=== PATIENT | female | born 1995 | race Caucasian/White ===

== ENCOUNTER 2023-12-14 19:11 | Observation (INO) | payer OTHER, SELFPAY ==
[2023-12-14 19:59] VITALS: PULSE 94; O2SAT 99
[2023-12-14 20:00] VITALS: BP 121/73; PULSE 92
[2023-12-14] MEDS: LACTATED RINGERS 1,000 ML 999 ML IV CONT (20:00)
[2023-12-14 20:01] VITALS: BP 121/73; PULSE 92; RESP 18; TEMP 36.9; O2SAT 99; BMI 27.6
--- NOTE | 2023-12-14 20:01 | OBADM ---
This patient, Shweta Dee, admitted to the OB room OB Post 113 for observation. Patient/family oriented to hospital policies and general routines including ID bracelet, bed and alarms, visiting hours, pain management, procedures, bathroom and other care routines, personal items, smoking policy, room service/diet, and visiting hours. Patient/Family are encouraged to report perceived risks to care and to ask questions if they do not understand what they are told or what they should do.
[2023-12-14 20:10] LABS: Basophils Percent Auto 0.3 % (0.2-1.2); Eosinophils Percent Auto 0.3 % (0-4.4); Hematocrit 36.8 % (37.0-47.0); Hemoglobin 12.2 g/dL (12.0-15.0); Immature Granulocyte Absolute 0.02 K/mm3 (0.00-0.031); Immature Granulocyte Percent A 0.5 % (0-0.5); Lymphocytes Absolute Auto 0.57 K/mm3 (0.9-3.2); Lymphocytes Percent Auto 14.6 % (18.3-44.2); Mean Corpuscular HGB Conc 33.2 g/dl (32-36); Mean Corpuscular Hemoglobin 29.8 pg (26-34); Mean Corpuscular Volume 89.8 fl (80-100); Mean Platelet Volume 10.1 fl (7.4-10.4); Monocytes Absolute Auto 0.2 K/mm3 (0.1-0.6); Monocytes Percent Auto 4.4 % (2.6-8.5); Neutrophils Absolute Auto 3.1 K/mm3 (1.3-6.7); Neutrophils Percent Auto 79.9 % (45.5-73.1); Platelet Count Result 178 k/mm3 (150-375); Red Cell Distribution Width 13.5 % (11.5-14.5); White Blood Count 3.9 K/mm3 (4.5-10.0)
[2023-12-14 20:16] LABS: Appearance Urine Clear (Clear); Bacteria Urine None Seen /hpf; Bilirubin Urine Negative (Negative); Blood Urine Negative (Negative); Color Urine Yellow (Yellow); Glucose Urine UA Negative (Negative); Ketones Urine Negative (Negative); Leukocyte Esterase Ur Trace LEU/UL (Negative); Nitrate Urine Negative (Negative); Non Pathogenic Casts 0-2; Protein Urine Negative (Negative); RBC Urine 0-2 /hpf (0-2); Specific Grav Ur 1.017 (1.001-1.035); Squamous Epithelial Cell Urine Occasional /hpf (Few); WBC Urine 0-5 /hpf (0-3)
[2023-12-14 20:20] LABS: Alanine Aminotransferase 20 U/L (6-35); Albumin Level 4.7 g/dL (3.5-5.1); Alkaline Phosphatase 44 U/L (38-126); Anion Gap 8 mmol/L (4-12); Aspartate Amino Transferase 23 U/L (14-36); Bilirubin,Total 0.5 mg/dL (0.2-1.3); Blood Urea Nitrogen 7 mg/dL (7-17); Calcium 9.3 mg/dL (8.4-10.2); Carbon Dioxide 19 mmol/L (22-30); Chloride 106 mmol/L (98-107); Estimated CRCL calculation 147 ml/min; Estimated Glomerular Filt Rate > 60; Glucose 92 mg/dL (65-110); Potassium 3.6 mmol/L (3.4-5.0); Sodium 133 mmol/L (137-145)
[2023-12-14 20:33] LABS: Add Urine Microscopic? YES
[2023-12-14] MEDS: LACTATED RINGERS 1,000 ML 125 ML IV CONT (21:05)
--- NOTE | 2023-12-17 06:40 | PM.OBTRLD ---
OB - Triage/Final Diagnosis Visit Information Date of evaluation: 12/16/23 Reason for evaluation: threatened labor Comments/Additional reasons for admission: I have assessed the risk for this patient, Shweta Dee, and determined that she would benefit from observation care. Evaluation Laboratory results: Laboratory Tests 12/14/23 19:32 WBC 3.9 L RBC 4.10 L Hgb 12.2 Hct 36.8 L MCV 89.8 MCH 29.8 MCHC 33.2 RDW 13.5 Plt Count 178 MPV 10.1 Immature Gran % (Auto) 0.5 Neut % (Auto) 79.9 H Lymph % (Auto) 14.6 L [place] % (Auto) 4.4 Eos % (Auto) 0.3 Baso % (Auto) 0.3 Lymph # (Auto) 0.57 L [place] # (Auto) 0.2 Eos # (Auto) 0.0 Baso # (Auto) 0.0 Abs Immat Gran (auto) 0.02 Absolute Neuts (auto) 3.1 Absolute Nucleated RBC 0.000 Nucleated RBC % 0.0 Sodium 133 L Potassium 3.6 Chloride 106 Carbon Dioxide 19 L Anion Gap 8 BUN 7 Creatinine 0.50 L Estim Creat Clear Calc 147 Estimated GFR > 60 Glucose 92 Calcium 9.3 Total Bilirubin 0.5 AST 23 ALT 20 Alkaline Phosphatase 44 Total Protein 8.0 Albumin 4.7 Urine Color Yellow Urine Appearance Clear Urine pH 6.0 Ur Specific [place] 1.017 Urine Protein Negative Urine Glucose (UA) Negative Urine Ketones Negative Ur Blood (Man) Negative Urine Nitrate Negative Urine Bilirubin Negative Urine Urobilinogen 1.0 Leukocyte Esterase Rfl Trace H Urine RBC 0-2 Urine WBC 0-5 Ur Squamous Epith Cells Occasional Urine Bacteria None seen Urine Casts 0-2
== END 2023-12-14 22:05 | disposition home or self-care (01) ==
PROVIDERS: Admitting Provider Obstetrics & Gynecology; Visit Provider Obstetrics & Gynecology
DX: O47.02 False labor before 37 completed weeks of gestation, second trimester (principal); Z3A.14 14 weeks gestation of pregnancy
CPT/HCPCS: 36415; 80053; 81001; 85025; 96374; G0378; G0379; J0696; J7120

== ENCOUNTER 2024-04-29 13:39 | Outpatient (CLI) | payer OTHER, SELFPAY ==
[2024-04-29] VITALS (7 sets, daily range): BP systolic 91–120; BP diastolic 57–80; PULSE 86–96
[2024-04-29 14:36] LABS: Basophils Percent Auto 0.1 % (0.2-1.2); Eosinophils Absolute Auto 0.1 K/mm3 (0-0.3); Eosinophils Percent Auto 1.1 % (0-4.4); Hematocrit 35.3 % (37.0-47.0); Hemoglobin 11.5 g/dL (12.0-15.0); Immature Granulocyte Absolute 0.07 K/mm3 (0.00-0.031); Immature Granulocyte Percent A 0.8 % (0-0.5); Lymphocytes Absolute Auto 1.35 K/mm3 (0.9-3.2); Lymphocytes Percent Auto 14.6 % (18.3-44.2); Mean Corpuscular HGB Conc 32.6 g/dl (32-36); Mean Corpuscular Hemoglobin 30.3 pg (26-34); Mean Corpuscular Volume 93.1 fl (80-100); Mean Platelet Volume 10.6 fl (7.4-10.4); Monocytes Absolute Auto 0.5 K/mm3 (0.1-0.6); Monocytes Percent Auto 5.1 % (2.6-8.5); Neutrophils Absolute Auto 7.3 K/mm3 (1.3-6.7); Neutrophils Percent Auto 78.3 % (45.5-73.1); Platelet Count Result 199 k/mm3 (150-375); Red Blood Count 3.79 M/mm3 (4.2-5.4); Red Cell Distribution Width 13.8 % (11.5-14.5); White Blood Count 9.3 K/mm3 (4.5-10.0)
[2024-04-29 14:39] LABS: Add Urine Microscopic? YES; Appearance Urine Clear (Clear); Bacteria Urine Rare /hpf; Bilirubin Urine Negative (Negative); Blood Urine Negative (Negative); Color Urine Yellow (Yellow); Glucose Urine UA Negative (Negative); Ketones Urine 1+ mg/dL (Negative); Leukocyte Esterase Ur 3+ LEU/UL (Negative); Nitrate Urine Negative (Negative); Non Pathogenic Casts 0-2; Protein Urine Negative (Negative); RBC Urine 0-2 /hpf (0-2); Specific Grav Ur 1.017 (1.001-1.035); Squamous Epithelial Cell Urine Few /hpf (Few); Urobilinogen Urine 0.2 mg/dL (<2.0); pH Urine 5.5 (5.0-9.0)
[2024-04-29 14:43] LABS: Alanine Aminotransferase 15 U/L (6-35); Albumin Level 3.9 g/dL (3.5-5.1); Alkaline Phosphatase 103 U/L (38-126); Anion Gap 8 mmol/L (4-12); Aspartate Amino Transferase 24 U/L (14-36); Bilirubin,Total 0.4 mg/dL (0.2-1.3); Blood Urea Nitrogen 8 mg/dL (7-17); Calcium 8.9 mg/dL (8.4-10.2); Carbon Dioxide 21 mmol/L (22-30); Chloride 104 mmol/L (98-107); Estimated Glomerular Filt Rate > 60; Glucose 78 mg/dL (65-110); Potassium 3.8 mmol/L (3.4-5.0); Sodium 133 mmol/L (137-145); Uric Acid 4.3 mg/dL (2.5-7.5)
[2024-04-29 15:00] LABS: Creatinine Urine 86.2 mg/dL; Total Protein Urine Random 7 mg/dL; Ur Ttl Prot Creatinine Ratio 0.08 mg/mg (0-0.20)
== END 2024-04-29 15:45 | disposition home or self-care (01) ==
LOC: ANHOBOP 13:45 → ANHOBPP 13:46
PROVIDERS: Visit Provider Obstetrics & Gynecology
DX: O13.9 Gestational [pregnancy-induced] hypertension without significant proteinuria, unspecified trimester (principal); Z3A.00 Weeks of gestation of pregnancy not specified
CPT/HCPCS: 36415; 59025; 80053; 81001; 82570; 84156; 84550; 85025; 87086; 99199

== ENCOUNTER 2024-05-06 08:43 | Outpatient (CLI) | payer OTHER, SELFPAY ==
[2024-05-06 09:10] VITALS: BP 118/82; PULSE 109
[2024-05-06 09:15] VITALS: BP 125/82; PULSE 83
[2024-05-06 09:30] VITALS: BP 125/79; PULSE 96
[2024-05-06 09:32] VITALS: BP 125/79; PULSE 96
[2024-05-06 09:33] LABS: Basophils Percent Auto 0.2 % (0.2-1.2); Eosinophils Absolute Auto 0.1 K/mm3 (0-0.3); Eosinophils Percent Auto 1.1 % (0-4.4); Hematocrit 35.6 % (37.0-47.0); Hemoglobin 11.4 g/dL (12.0-15.0); Immature Granulocyte Absolute 0.05 K/mm3 (0.00-0.031); Immature Granulocyte Percent A 0.6 % (0-0.5); Lymphocytes Absolute Auto 1.05 K/mm3 (0.9-3.2); Mean Corpuscular Hemoglobin 29.8 pg (26-34); Mean Corpuscular Volume 93.2 fl (80-100); Monocytes Absolute Auto 0.5 K/mm3 (0.1-0.6); Monocytes Percent Auto 5.7 % (2.6-8.5); Neutrophils Absolute Auto 6.4 K/mm3 (1.3-6.7); Neutrophils Percent Auto 79.4 % (45.5-73.1); Platelet Count Result 199 k/mm3 (150-375); Red Blood Count 3.82 M/mm3 (4.2-5.4); White Blood Count 8.1 K/mm3 (4.5-10.0)
[2024-05-06 09:38] LABS: Add Urine Microscopic? YES; Appearance Urine Clear (Clear); Bacteria Urine 1+ /hpf; Bilirubin Urine Negative (Negative); Blood Urine Negative (Negative); Color Urine Yellow (Yellow); Glucose Urine UA Negative (Negative); Ketones Urine Negative (Negative); Leukocyte Esterase Ur 3+ LEU/UL (Negative); Nitrate Urine Negative (Negative); Non Pathogenic Casts 0-2; Protein Urine Negative (Negative); RBC Urine 0-2 /hpf (0-2); Specific Grav Ur 1.009 (1.001-1.035); Squamous Epithelial Cell Urine Moderate /hpf (Few); Urobilinogen Urine 0.2 mg/dL (<2.0)
[2024-05-06 09:42] LABS: Alanine Aminotransferase 15 U/L (6-35); Albumin Level 3.7 g/dL (3.5-5.1); Alkaline Phosphatase 108 U/L (38-126); Anion Gap 8 mmol/L (4-12); Aspartate Amino Transferase 22 U/L (14-36); Bilirubin,Total 0.2 mg/dL (0.2-1.3); Blood Urea Nitrogen 6 mg/dL (7-17); Calcium 8.6 mg/dL (8.4-10.2); Carbon Dioxide 20 mmol/L (22-30); Chloride 107 mmol/L (98-107); Estimated Glomerular Filt Rate > 60; Glucose 94 mg/dL (65-110); Potassium 4.2 mmol/L (3.4-5.0); Sodium 135 mmol/L (137-145); Uric Acid 4.1 mg/dL (2.5-7.5)
[2024-05-06 09:45] VITALS: BP 127/81; PULSE 103
[2024-05-06 10:00] VITALS: BP 125/82; PULSE 100
[2024-05-06 10:36] LABS: Creatinine Urine 38.7 mg/dL; Total Protein Urine Random 12 mg/dL; Ur Ttl Prot Creatinine Ratio 0.31 mg/mg (0-0.20)
--- NOTE | 2024-05-06 10:38 | PC.NURSE ---
Paged Dr. Elyssa Major to notify of lab results
--- NOTE | 2024-05-06 10:43 | PC.NURSE ---
Received call back from Dr. Elyssa Major. Informed of tracing, symptoms, vital signs, lab results, and negative ROM plus. MD verbalized understanding, states patient may be discharged on rest precautions. RN repeated orders back to confirm.
--- NOTE | 2024-05-06 10:54 | PC.NURSE ---
Discharge instructions provided to patient. Pt verbalized understanding. No further questions or concerns at this time.
== END 2024-05-06 10:55 | disposition home or self-care (01) ==
LOC: ANHOBOP 08:45 → ANHOBPP 08:45
PROVIDERS: Visit Provider Obstetrics & Gynecology
DX: O13.9 Gestational [pregnancy-induced] hypertension without significant proteinuria, unspecified trimester (principal); O41.8X90 Other specified disorders of amniotic fluid and membranes, unspecified trimester, not applicable or unspecified
CPT/HCPCS: 36415; 80053; 81001; 82570; 84156; 84550; 85025; 87086; 87088; 99199

== ENCOUNTER 2024-05-20 10:46 | Outpatient (CLI) | payer OTHER, SELFPAY ==
[2024-05-20 11:32] VITALS: BP 125/85; PULSE 89; PULSE 91
[2024-05-20 11:40] LABS: Basophils Percent Auto 0.2 % (0.2-1.2); Eosinophils Absolute Auto 0.1 K/mm3 (0-0.3); Eosinophils Percent Auto 0.9 % (0-4.4); Hematocrit 36.1 % (37.0-47.0); Hemoglobin 11.8 g/dL (12.0-15.0); Immature Granulocyte Absolute 0.11 K/mm3 (0.00-0.031); Immature Granulocyte Percent A 1.3 % (0-0.5); Lymphocytes Absolute Auto 1.28 K/mm3 (0.9-3.2); Lymphocytes Percent Auto 14.7 % (18.3-44.2); Mean Corpuscular HGB Conc 32.7 g/dl (32-36); Mean Corpuscular Hemoglobin 30.3 pg (26-34); Mean Corpuscular Volume 92.6 fl (80-100); Mean Platelet Volume 11.1 fl (7.4-10.4); Monocytes Absolute Auto 0.4 K/mm3 (0.1-0.6); Monocytes Percent Auto 5.1 % (2.6-8.5); Neutrophils Absolute Auto 6.8 K/mm3 (1.3-6.7); Neutrophils Percent Auto 77.8 % (45.5-73.1); Platelet Count Result 184 k/mm3 (150-375); Red Cell Distribution Width 14.1 % (11.5-14.5); White Blood Count 8.7 K/mm3 (4.5-10.0)
[2024-05-20 11:44] LABS: Add Urine Microscopic? YES; Appearance Urine Cloudy (Clear); Bacteria Urine None Seen /hpf; Bilirubin Urine Negative (Negative); Blood Urine Negative (Negative); Color Urine Yellow (Yellow); Glucose Urine UA Negative (Negative); Ketones Urine Negative (Negative); Leukocyte Esterase Ur 3+ LEU/UL (Negative); Nitrate Urine Negative (Negative); Protein Urine Negative (Negative); RBC Urine 0-2 /hpf (0-2); Specific Grav Ur 1.005 (1.001-1.035); Squamous Epithelial Cell Urine Few /hpf (Few); Urobilinogen Urine 0.2 mg/dL (<2.0)
[2024-05-20 11:45] VITALS: BP 123/81; PULSE 95
[2024-05-20 11:47] LABS: Creatinine Urine 23.6 mg/dL; Total Protein Urine Random 11 mg/dL; Ur Ttl Prot Creatinine Ratio 0.47 mg/mg (0-0.20)
[2024-05-20 11:58] LABS: Alanine Aminotransferase 16 U/L (6-35); Albumin Level 3.8 g/dL (3.5-5.1); Alkaline Phosphatase 140 U/L (38-126); Anion Gap 7 mmol/L (4-12); Aspartate Amino Transferase 23 U/L (14-36); Bilirubin,Total 0.3 mg/dL (0.2-1.3); Blood Urea Nitrogen 7 mg/dL (7-17); Calcium 8.9 mg/dL (8.4-10.2); Carbon Dioxide 20 mmol/L (22-30); Chloride 106 mmol/L (98-107); Estimated Glomerular Filt Rate > 60; Glucose 83 mg/dL (65-110); Potassium 3.9 mmol/L (3.4-5.0); Sodium 133 mmol/L (137-145)
[2024-05-20 12:00] VITALS: BP 115/80; PULSE 94
[2024-05-20 12:15] VITALS: BP 115/85; PULSE 101
[2024-05-20 12:30] VITALS: BP 126/84; PULSE 88
[2024-05-20 12:37] VITALS: BP 126/84; PULSE 97
--- NOTE | 2024-05-20 17:49 | PC.NURSE ---
Dr. Elyssa Major informed of BP's, labs including total protein / creatinine ratio of 0.47, reactive NST with pt shayy regularly- palpate mild. states pt was barely a 1 cm in the office and doesn't need rechecked. Order received to schedule pt for induction of labor Saturday am and to discharge to home now.
== END 2024-05-20 12:50 | disposition home or self-care (01) ==
LOC: ANHOBPP 14:13 → ANHOBOP 14:15 → ANHOBPP 05-25 07:31
PROVIDERS: Visit Provider Obstetrics & Gynecology
DX: O16.9 Unspecified maternal hypertension, unspecified trimester (principal); Z3A.00 Weeks of gestation of pregnancy not specified
CPT/HCPCS: 36415; 59025; 80053; 81001; 82570; 84156; 84550; 85025; 87086; 99199

== ENCOUNTER 2024-05-25 04:38 | Inpatient (IN) | payer OTHER, SELFPAY ==
[2024-05-25] VITALS (9 sets, daily range): BP systolic 117–145; BP diastolic 78–90; PULSE 82–115; RESP 20; TEMP 36.8–37; O2SAT 98; BMI 32.5
--- NOTE | 2024-05-25 05:19 | LDADM ---
This patient, Shweta Dee, was admitted to Labor/Delivery/Recovery 107 on 05/25/24 at 04:38. Plans for labor, pain management and were discussed with patient. Patient/family oriented to hospital policies and general routines including ID bracelet, bed and alarms, visiting hours, pain management, procedures, bathroom and other care routines, personal items, smoking policy, room service/diet and guest tray routines, infant security routines, and visiting hours. Patient/Family are encouraged to report perceived risks to care and to ask questions if they do not understand what they are told or what they should do. See OBIX for further documentation.
[2024-05-25] MEDS: AMPICILLIN 2 GM/NS 100 ML 2 GM/100 ML BAG IVPB (05:35)
[2024-05-25] MEDS: LACTATED RINGERS 1,000 ML 125 ML IV CONT ×3 (05:35→13:07)
[2024-05-25] MEDS: OXYTOCIN 30 UNITS/NS 500 ML 30 UNITS/500 ML BAG IV CONT (05:35)
[2024-05-25 05:36] LABS: Basophils Percent Auto 0.1 % (0.2-1.2); Eosinophils Absolute Auto 0.1 K/mm3 (0-0.3); Hematocrit 34.3 % (37.0-47.0); Hemoglobin 11.5 g/dL (12.0-15.0); Immature Granulocyte Absolute 0.08 K/mm3 (0.00-0.031); Immature Granulocyte Percent A 0.9 % (0-0.5); Lymphocytes Absolute Auto 1.62 K/mm3 (0.9-3.2); Lymphocytes Percent Auto 17.3 % (18.3-44.2); Mean Corpuscular HGB Conc 33.5 g/dl (32-36); Mean Corpuscular Hemoglobin 31.1 pg (26-34); Mean Corpuscular Volume 92.7 fl (80-100); Mean Platelet Volume 11.1 fl (7.4-10.4); Monocytes Absolute Auto 0.6 K/mm3 (0.1-0.6); Monocytes Percent Auto 5.9 % (2.6-8.5); Neutrophils Percent Auto 74.8 % (45.5-73.1); Platelet Count Result 184 k/mm3 (150-375); Red Cell Distribution Width 13.9 % (11.5-14.5); White Blood Count 9.3 K/mm3 (4.5-10.0)
[2024-05-25 06:11] LABS: Alanine Aminotransferase 15 U/L (6-35); Albumin Level 3.6 g/dL (3.5-5.1); Alkaline Phosphatase 137 U/L (38-126); Anion Gap 12 mmol/L (4-12); Aspartate Amino Transferase 23 U/L (14-36); Bilirubin,Total 0.2 mg/dL (0.2-1.3); Blood Urea Nitrogen 10 mg/dL (7-17); Calcium 9.2 mg/dL (8.4-10.2); Carbon Dioxide 17 mmol/L (22-30); Chloride 107 mmol/L (98-107); Estimated CRCL calculation 176 ml/min; Estimated Glomerular Filt Rate > 60; Glucose 129 mg/dL (65-110); Potassium 3.6 mmol/L (3.4-5.0); Sodium 136 mmol/L (137-145); Uric Acid 4.9 mg/dL (2.5-7.5)
[2024-05-25 06:36] LABS: HIV 1/2 Ab P24 Ag Result Negative (Negative)
--- NOTE | 2024-05-25 06:42 | WPDANESEPP ---
Anes - Eval Pre Procedure Procedure: labor epidural Date/Time: 05/25/24 06:42 Surgeon: austin Preop Diagnosis: pain during labor Pre Op Diagnosis: IOL Patient Data Age: 28 Gender: F Height: 1.75 m Weight: 100 kg Last Vital Signs Temp 36.8 C 05/25/24 06:07 Pulse 94 05/25/24 06:31 BP 134/85 05/25/24 06:31 O2 Del Method Room Air 05/25/24 05:18 Allergies Allergy/AdvReac Type Severity Reaction Status Date / Time No Known Allergies Allergy Verified 05/13/24 14:27 Home Medications Medication Instructions Recorded Confirmed Type labetalol 100 mg tablet 100 mg PO BID 05/06/24 05/20/24 History vits 75-iron 28 mg-folic 1 pkg PO QAM 05/06/24 05/20/24 History acid 800 mcg-omega3 440 mg oral pack (One Daily ) cholecalciferol (vitamin D3) 125 125 mcg PO DAILY 05/20/24 05/20/24 History mcg (5,000 unit) tablet (Vitamin D3) Laboratory Tests 05/25/24 05/25/24 05:28 05:28 WBC 9.3 K/mm3 (4.5-10.0) RBC 3.70 L M/mm3 (4.2-5.4) Hgb 11.5 L g/dL (12.0-15.0) Hct 34.3 L % (37.0-47.0) MCV 92.7 fl (80-100) MCH 31.1 pg (26-34) MCHC 33.5 g/dl (32-36) RDW 13.9 % (11.5-14.5) Plt Count 184 k/mm3 (150-375) MPV 11.1 H fl (7.4-10.4) Immature Gran % (Auto) 0.9 H % (0-0.5) Neut % (Auto) 74.8 H % (45.5-73.1) Lymph % (Auto) 17.3 L % (18.3-44.2) [place] % (Auto) 5.9 % (2.6-8.5) Eos % (Auto) 1.0 % (0-4.4) Baso % (Auto) 0.1 L % (0.2-1.2) Lymph # (Auto) 1.62 K/mm3 (0.9-3.2) [place] # (Auto) 0.6 K/mm3 (0.1-0.6) Eos # (Auto) 0.1 K/mm3 (0-0.3) Baso # (Auto) 0.0 K/mm3 (0.0-0.1) Abs Immat Gran (auto) 0.08 H K/mm3 (0.00-0.031) Absolute Neuts (auto) 7.0 H K/mm3 (1.3-6.7) Absolute Nucleated RBC 0.000 K/mm3 (0.0-0.012) Nucleated RBC % 0.0 % (0.0-0.2) Sodium 136 L mmol/L (137-145) Potassium 3.6 mmol/L (3.4-5.0) Chloride 107 mmol/L (98-107) Carbon Dioxide 17 L mmol/L (22-30) Anion Gap 12 mmol/L (4-12) BUN 10 mg/dL (7-17) Creatinine 0.50 L mg/dL (0.7-1.0) Estim Creat Clear Calc 176 ml/min Estimated GFR > 60 (59 - ) Glucose 129 H mg/dL (65-110) Uric Acid Cancelled 4.9 mg/dL (2.5-7.5) Calcium 9.2 mg/dL (8.4-10.2) Total Bilirubin 0.2 mg/dL (0.2-1.3) AST 23 U/L (14-36) ALT 15 U/L (6-35) Alkaline Phosphatase 137 H U/L (38-126) Total Protein 7.0 g/dL (6.3-8.2) Albumin 3.6 g/dL (3.5-5.1) RPR Pending HIV 1&2 Ab/P24 Ag 4thGn Negative (Negative) Blood Type O Positive Antibody Screen Pending Patient hx anesthesia problems: none Family hx anesthesia problems: none Results Review: All pre-operative results and documents have been reviewed as part of the pre-operative evaluation. [facility] Past Medical History Medical History (Updated 05/25/24 @ 06:43 by Etelvina Lucio CRNA) Bipolar 1 disorder IUP (intrauterine ), incidental Obesity (BMI 30-39.9) Family History Family History (Updated 05/13/24 @ 14:31 by Sera Small RN) Father Congestive heart failure Hypertension Social History Social History Smoking status: Never smoker Second hand tobacco smoke exposure: No Substance use: never Do You Feel Safe in your Home?: Yes Lack of Transportation: No Lack of Food: Never True Current Housing: I Have Housing Concerned About Future Housing: No Difficulty Paying Gas/Electric Bills: No Difficulty Paying for Meds: No Currently Unemployed: No Education: Master's Degree or Higher Difficulty w/ Childcare or Family Care: No Spiritual care concerns: No Exam Day of Procedure 05/25/24 06:42
[2024-05-25 06:56] LABS: Rapid Plasma Reagin Non-Reactive (NonReactive)
--- NOTE | 2024-05-25 07:07 | PM.IMHP ---
H&P: HPI History of Present Illness Date/Time: 05/25/24 07:07 Chief Complaint: Elevated blood pressure /term / positive group B strep Narrative: 28-year-old 2 para 1 whose last menstrual period was 09/02/2023, EDC is 06/07/2024, confirmed by 10 week ultrasound, presents at 38-,1/7 weeks gestation for induction of labor secondary to elevated blood pressures. She has been on labetalol and her pressures have present PIH labs were negative however later for continued increasing blood pressure she is admitted for induction. Group B strep prophylaxis will be undertaken. [facility] Past Medical History Medical History Bipolar 1 disorder IUP (intrauterine ), incidental Obesity (BMI 30-39.9) Family History Family History Father Congestive heart failure Hypertension Social History Social History Smoking status: Never smoker Second hand tobacco smoke exposure: No Substance use: never Do You Feel Safe in your Home?: Yes Lack of Transportation: No Lack of Food: Never True Current Housing: I Have Housing Concerned About Future Housing: No Difficulty Paying Gas/Electric Bills: No Difficulty Paying for Meds: No Currently Unemployed: No Education: Master's Degree or Higher Difficulty w/ Childcare or Family Care: No Spiritual care concerns: No Meds Home Medications and Allergies Home Medications Medication Instructions Recorded Confirmed Type labetalol 100 mg tablet 100 mg PO BID 05/06/24 05/20/24 History vits 75-iron 28 mg-folic 1 pkg PO QAM 05/06/24 05/20/24 History acid 800 mcg-omega3 440 mg oral pack (One Daily ) cholecalciferol (vitamin D3) 125 125 mcg PO DAILY 05/20/24 05/20/24 History mcg (5,000 unit) tablet (Vitamin D3) Allergies Allergy/AdvReac Type Severity Reaction Status Date / Time No Known Allergies Allergy Verified 05/13/24 14:27 Vital Signs Vital Signs - 24 hr 05/25/24 04:59 05/25/24 05:31 05/25/24 05:40 Temperature 98.3 F Pulse Rate 115 H 91 Blood Pressure 145/84 H 125/90 Oxygen Delivery 05/25/24 06:17 05/25/24 06:07 05/25/24 06:31 Temperature 98.2 F Pulse Rate 98 94 Blood Pressure 121/82 134/85 Oxygen Delivery 05/25/24 07:01 05/25/24 05:18 Temperature Pulse Rate 82 Blood Pressure 136/86 Oxygen Delivery Room Air Exam Const: General: cooperative, healthy appearing and comfortable Nutritional Appearance: average body habitus Orientation/consciousness: oriented to person, oriented to place and oriented to time HENMT: Head: normal to inspection Resp: Effort & Inspection: normal respiratory effort Cardio: Rate: regular rate Rhythm: regular rhythm Heart sounds: S1 normal heart sound present and S2 normal heart sound present GI: Inspection: normal to inspection ( Gravid soft uterus) : External Female Exam: normal external appearance Speculum Exam - Vagina: normal appearance of the vagina Speculum Exam - Cervix: normal appearance of the cervix ( cervix 2/50/2. AROM clear. FHT is reassuring) H&P: Results Labs Labs: Short CBC 05/25/24 Range/Units 05:28 WBC 9.3 (4.5-10.0) K/mm3 Hgb 11.5 L (12.0-15.0) g/dL Hct 34.3 L (37.0-47.0) % Plt Count 184 (150-375) k/mm3 BMP 05/25/24 05:28 Sodium 136 L Potassium 3.6 Chloride 107 Carbon Dioxide 17 L BUN 10 Creatinine 0.50 L Glucose 129 H Calcium 9.2 Liver Function 05/25/24 Range/Units 05:28 Total Bilirubin 0.2 (0.2-1.3) mg/dL AST 23 (14-36) U/L ALT 15 (6-35) U/L Alkaline Phosphatase 137 H (38-126) U/L Albumin 3.6 (3.5-5.1) g/dL Assessment and Plan Assessment and plan (1) Term : Code(s): Z34.90 - Encounter for supervision of normal , unspecified, unsp
[2024-05-25] MEDS: ceFAZolin 1 GM/NS 50 ML 1 GM/50 ML BAG IVPB ×2 (09:37→14:16)
--- NOTE | 2024-05-25 15:44 | PM.OBPRVD ---
OB - Vaginal Delivery Note Procedure Delivery date: 05/25/24 Events: Gestational Hypertension Induction method: AROM Delivery augmentation: Pitocin Delivery monitor: External FHT and External Uterine Route of delivery: Episiotomy description: None Laceration Description: None Specimen: No Quantitative Blood Loss (ml): 61 Anesthesia type: Epidural Disposition: Floor Complications: No immediate complications Narrative: The patient was admitted for induction of labor at 3817 weeks gestation secondary to gestational hypertension. She received 3 doses of ampicillin prophylactically for group B strep which was complete she pushed delivered head spontaneously in the ANNE position. Anterior posterior shoulder delivered spontaneously. Cord clamped x2 and cut. Infant passed off the table given Apgars of 9 [id number]. Cord blood was drawn. Placenta delivered intact spontaneously. Twenty of Pitocin placed IV to help firm the uterus. No tears or lacerations were noted. There were no immediate complications Baby Date of : 05/25/24 Time of : 15:36 Gestational Age by Date: 38 Infant gender: Female presentation: vertex position: Right Occiput Anterior Placenta delivery description: Spontaneous Cord Vessel Description: 3 Vessels score one minute: 9 score five minutes: 9
--- NOTE | 2024-05-25 15:46 | PM.DS ---
DS: Admitting Diagnosis Discharge Date 05/26/2024 Admitting Diagnosis term /gestational hypertension DS: Discharge Diagnosis Discharge Diagnosis (1) Positive testing for group B Streptococcus: Code(s): B95.1 - Streptococcus, group B, as the cause of diseases classified elsewhere Status: Acute (2) Gestational hypertension: Code(s): O13.9 - Gestational [-induced] hypertension without significant proteinuria, unspecified trimester Status: Acute (3) Term : Code(s): Z34.90 - Encounter for supervision of normal , unspecified, unspecified trimester Status: Acute DS: Summary Hospital Course Reason for hospitalization: patient was admitted for induction of labor secondary to gestational hypertension group B strep at 38 weeks gestation Hospital Course: patient's hospital course unremarkable. She remained afebrile. She was up, voiding without difficulty, eating regular diet, ambulating, and generally without complaints. Time Spent with Patient Time attestation: Total time spent providing and/or coordinating discharge services: Exam Const: General: cooperative, healthy appearing and comfortable Orientation/consciousness: oriented to person, oriented to place and oriented to time HENMT: Head: normal to inspection Chest: Chest palpation & inspection: normal inspection of the chest Resp: Effort & Inspection: normal respiratory effort Cardio: Rate: regular rate Rhythm: regular rhythm Heart sounds: S1 normal heart sound present and S2 normal heart sound present GI: Inspection: normal to inspection DS: Data Data Completed and Pending Labs on day of discharge: Labs from last 24 hours 05/25/24 05/25/24 05:28 05:28 WBC 9.3 RBC 3.70 L Hgb 11.5 L Hct 34.3 L MCV 92.7 MCH 31.1 MCHC 33.5 RDW 13.9 Plt Count 184 MPV 11.1 H Immature Gran % (Auto) 0.9 H Neut % (Auto) 74.8 H Lymph % (Auto) 17.3 L [place] % (Auto) 5.9 Eos % (Auto) 1.0 Baso % (Auto) 0.1 L Lymph # (Auto) 1.62 [place] # (Auto) 0.6 Eos # (Auto) 0.1 Baso # (Auto) 0.0 Abs Immat Gran (auto) 0.08 H Absolute Neuts (auto) 7.0 H Absolute Nucleated RBC 0.000 Nucleated RBC % 0.0 Sodium 136 L Potassium 3.6 Chloride 107 Carbon Dioxide 17 L Anion Gap 12 BUN 10 Creatinine 0.50 L Estim Creat Clear Calc 176 Estimated GFR > 60 Glucose 129 H Uric Acid 4.9 Cancelled Calcium 9.2 Total Bilirubin 0.2 AST 23 ALT 15 Alkaline Phosphatase 137 H Total Protein 7.0 Albumin 3.6 RPR Non-reactive HIV 1&2 Ab/P24 Ag 4thGn Negative Blood Type O Positive Antibody Screen Negative Discharge Plan Discharge Attending physician on discharge: Sy Hong Discharging Clinician: Sy Hong Patient Disposition: Home, Self-Care Activity: may shower and pelvic rest Diet: heart healthy Wound Care Instructions: follow printed instructions Patient Instructions: Antibiotic Form Stand Alone Forms: General Discharge Information Follow-up/Referrals: Sy Hong MD [Physician] - Discharge Medications: No Action labetalol 100 mg tablet 100 mg PO BID One Daily 28-800-440 mg-mcg-mg Combo Pack 1 pkg PO QAM cholecalciferol (vitamin D3) [Vitamin D3] 125 mcg (5,000 unit) Tablet 125 mcg PO DAILY Date of admission: 05/25/24 04:38 Primary Care Provider: PHYSICIAN,TERRITORY SERVICE REPRESENTATIVE Admitting Provider: Sy Hong Attending physician on admission: Sy Hong Condition: Stable
[2024-05-25] MEDS: OXYTOCIN 30 UNITS/NS 500 ML 30 UNITS/500 ML BAG 125 UNITS IV CONT (16:13)
[2024-05-25] MEDS: WITCH HAZEL 40 PADS 1 PAD TOPICAL (19:30)
[2024-05-25] MEDS: BENZOCAINE 20% AER SPR (*SP) 56 GM CAN 1 SPRAY TOPICAL (19:30)
--- NOTE | 2024-05-25 19:50 | OBPPTRN ---
Patient transferred to post room #280 via wheelchair. Support person present. Oriented to unit, room, information board, rooming in, admission packet and security measures. Patient verbalizes understanding.
[2024-05-26] MEDS: ACETAMINOPHEN 325 MG TABLET 650 MG PO (03:00)
[2024-05-26 03:08] LABS: Hematocrit 33.7 % (37.0-47.0); Hemoglobin 11.4 g/dL (12.0-15.0)
--- NOTE | 2024-05-26 06:56 | PM.OBPNVD ---
OB - PN: Subj Subjective Date/time seen: 05/26/24 06:56 Patient comments: no complaints and pain well controlled baby status: doing well OB - PN: Obj Data Labs 05/26/24 02:55 05/25/24 05:28 Labs: Laboratory Results - last 24 hr 05/25/24 05/26/24 05:28 02:55 Hgb 11.4 L Hct 33.7 L RPR Non-reactive OB - PN A/P Plan day: 1 Plan: routine care Time Spent With Patient Time: Total time spent is greater than 50% in coordination of care (as documented) at patient's floor/unit and/or counseling patient: Time with patient: less than 15 minutes Exam Const: General: cooperative, healthy appearing and comfortable Orientation/consciousness: oriented to person, oriented to place and oriented to time HENMT: Head: normal to inspection Resp: Effort & Inspection: normal respiratory effort Cardio: Rate: regular rate Rhythm: regular rhythm Heart sounds: S1 normal heart sound present and S2 normal heart sound present GI: Inspection: normal to inspection
[2024-05-26 07:40] VITALS: BP 113/72; PULSE 88; RESP 16; TEMP 37.1; O2SAT 99
[2024-05-26] MEDS: DOCUSATE SODIUM 100 MG CAPSULE PO (07:57)
[2024-05-26] MEDS: MULTIVIT/MIN/PREN/FOL AC/IRON TABLET 1 TAB PO (07:57)
--- NOTE | 2024-05-26 08:00 | PC.NURSE ---
Consulted with patient to assess needs related to . Discussed with mother her successes, concerns and any questions she has. We reviewed working with the , supporting breast, obtaining an optimal deep latch. Encouraged understanding responding to feeding cues, frequencies of feeding 8-12 times in 24 hours (approximately 2-3 hours), duration of feedings, milk production, intake/output feeding sheet and signs of adequate intake encouraging swallowing at the breast. Reviewed positioning and alignment, supporting breast, off-centered (asymmetrical latch) and leading with the chin with big, open, wide gape. Baby tends to have a tight mouth and holds her tongue up. We worked to get that big open mouth, encouraging backing baby away from the nipple until she shows that big mouth. Infant latched optimally to the [left and right] breasts in [football] position off and on. Education given to the mother of how to visualize the suckling (with good rocking jaw motion) swallows (dropping of the lower jaw) and how to listen for drinking at the breast (the ka sound). The was [able] to maintain latch without discomfort to mother. Baby was a little sleepy after we switched side but did a pretty good job. Mom has used her [place] in the night and collected about 8ml which she sup fed to baby. Resources provided with name/number on white board. Mother voiced understanding of the education shared, to call for assistance if the does not latch or if there is discomfort with . Reported to the Primary RN.
[2024-05-26 12:30] VITALS: BP 114/69; PULSE 72; RESP 16; TEMP 36.9; O2SAT 99
--- NOTE | 2024-05-26 17:41 | WPDANLDPN2 ---
Anes-Prog Note L&D Date/Time: 05/26/24 17:41 Neuro status: Neuro function grossly intact. Cardiovascular status: normal Respiratory status: normal Airway patency: baseline Mental status: baseline Post-Op hydration status: normal Vital Signs: Last Vital Signs Temp 36.9 C 05/26/24 12:30 Pulse 72 05/26/24 12:30 Resp 16 05/26/24 12:30 BP 114/69 05/26/24 12:30 Pulse Ox 99 05/26/24 12:30 O2 Del Method Room Air 05/25/24 20:00 Pain score (VAS): 0 Post-procedural complaints: none Patient feedback: Patient satisfied with anesthetic care.
[2024-05-27 11:29] VITALS: BP 110/74; PULSE 100; RESP 18; TEMP 37.2; O2SAT 100
== END 2024-05-26 17:20 | disposition home or self-care (01) | DRG 807 ==
LOC: ANHLDR 15:52 → ANHOB2 19:52
PROVIDERS: Admitting Provider Obstetrics & Gynecology; Visit Provider Obstetrics & Gynecology
DX: O13.4 Gestational [pregnancy-induced] hypertension without significant proteinuria, complicating childbirth (principal); Z37.0 Single live birth; Z3A.38 38 weeks gestation of pregnancy; O99.824 Streptococcus B carrier state complicating childbirth
CPT/HCPCS: 36415; 80053; 84550; 85014; 85018; 85025; 86592; 86703; 86850; 86900; 86901; A9270; G0432; J0290; J0690; J2590; J2795; J7120